=== PATIENT | male | born 1985 | race Caucasian/White ===

== ENCOUNTER 2022-11-14 01:55 | Emergency (ER) | payer SELFPAY ==
[~2022-11-14] VITALS: Ht 175.3 cm; Wt 104.3 kg
[2022-11-14 01:55] VITALS: BP 133/80
--- NOTE | 2022-11-14 01:59 | NUR ---
BIBA TO BED #8
[2022-11-14] MEDS ORDERED: HALOPERIDOL IM 5 MG/ML VIAL ONE (02:26)
[2022-11-14] MEDS ORDERED: HALOPERIDOL IM 5 MG/ML VIAL IM ONE (02:30)
[2022-11-14] MEDS ORDERED: diphenhydrAMINE 50 MG/ML VIAL IM ONE (02:30)
[2022-11-14 02:40] LABS: BASOPHILS % (AUTO) 0.3 % (0.0-2.0); EOSINOPHILS % (AUTO) 0.3 % (0.0-4.0); HEMATOCRIT 49.8 % (36-52); HEMOGLOBIN 16.9 g/dL (12.0-18.0); LYMPHOCYTES # (AUTO) 2.1 K/uL (2.0-11.5); MEAN CORPUSCULAR HEMOGLOBIN 27 pg (27-31); MEAN CORPUSCULAR HGB CONC 34 g/dL (33-37); MEAN CORPUSCULAR VOLUME 80.3 fL (80-94); MONOCYTES # (AUTO) 0.5 K/uL (0.8-1.0); NEUTROPHILS % (AUTO) 74.4 % (42.2-75.2); PLATELET COUNT (AUTO) 158 K/uL (140-450); RED CELL DISTRIBUTION WIDTH 14.7 % (11.6-13.7); WHITE BLOOD COUNT (AUTO) 10.8 K/uL (4.8-10.8)
[2022-11-14 02:55] LABS: ALBUMIN 4.5 g/dL (3.4-5.0); ANION GAP 18.2 (8-16); CARBON DIOXIDE 22.1 mmol/L (21-32); CREATININE 1.2 mg/dL (0.6-1.3); POTASSIUM 3.3 mmol/L (3.5-5.1); TOTAL BILIRUBIN 0.4 mg/dL (0.0-1.0)
[2022-11-14] MEDS ORDERED: NACL 0.9% 2,000 ML IV ONE (03:20)
--- NOTE | 2022-11-14 03:30 | NUR ---
37YR OLD MALE BIB EMS C/O ETOH / JEANNE EYE IRRIATION S/P PEPPER SPRAY. [place] [employer] AT BEDSIDE. PT PEPPERED SPRAYED JEANNE EYES RED /TEARING. DENIES PAIN DENIES CP OR SOB. SP02 96% RA PLACED ON CARIDAC MONITOR. PT IS IN BED PD AT BEDSIDE . HOB ELEVATED. BED AT LOWEST POSITION SIDE RAILS UP X2. PT IS MED [facility] FOR BOOKING. NKDA NO MED HX
[2022-11-14 03:34] LABS: BARBITURATE, URINE NEGATIVE ng/ml (NEG <=200); BENZODIAZEPINE, URINE NEGATIVE ng/mL (NEG <=200); CANNABINOID, URINE NEGATIVE ng/mL (NEG <=50); COCAINE, URINE NEGATIVE ng/mL (NEG <=300); OPIATE, URINE NEGATIVE ng/mL (NEG <=2000); PHENCYCLIDINE SCREEN,URINE NEGATIVE ng/mL (NEG <=25)
[2022-11-14 03:42] VITALS: BP 125/75
--- NOTE | 2022-11-14 04:27 | NUR ---
Patient discharged with v/s stable. Written and verbal after care instructions given and explained. Patient verbalized understanding. Ambulatory with in custody. All questions addressed prior to discharge. Advised to follow up with PMD.
--- NOTE | 2022-11-14 04:37 | NUR ---
The patient's care was reviewed and supervised by Geetha Bach RN.
== END 2022-11-14 04:27 ==
LOC: MED 01:55
DX: E86.0 Dehydration (principal); F10.129 Alcohol abuse with intoxication, unspecified; Y04.0XXA Assault by unarmed brawl or fight, initial encounter; Y93.89 Activity, other specified; Y92.511 Restaurant or cafe as the place of occurrence of the external cause; Y99.8 Other external cause status
CPT/HCPCS: 36415; 80053; 80305; 85025; 93005; 96360; 96361; 96372; 99285; G0482; J1630; J7030